=== PATIENT | female | born 1980 | race Caucasian/White ===

== ENCOUNTER → 2017-05-23 | Outpatient (CLI) | payer MEDICARE ==
[2017-05-23 13:23] LABS: HEMOGLOBIN 13.4 g/dL (12.2-16.2); LYMPH # 2.4 K/mm3 (0.7-4.5); LYMPH % 32.2 % (10-50.0)
[2017-05-23 16:06] LABS: BUN 8 mg/dL (7-18)
[2017-05-23 16:11] LABS: GFR (ESTIMATED) 81 ML/MIN (59-)
== END ==
LOC: LAB 13:08
PROVIDERS: Nurse Practitioner Family
DX: R53.83 Other fatigue (principal); E55.9 Vitamin D deficiency, unspecified; M54.5 Low back pain; R10.11 Right upper quadrant pain; F32.9 Major depressive disorder, single episode, unspecified; Z79.899 Other long term (current) drug therapy

== ENCOUNTER → 2017-05-30 | Outpatient (CLI) | payer MEDICARE, MEDICAID ==
--- NOTE | 2017-05-30 09:41 | RADIOLOGY REPORT PS360 ---
EXAM: LUMBAR SPINE 5 VIEWS HISTORY: BILAT LOW BACK PAIN WITH SCIATICA ORDERING PHYSICIAN: OSBALDO MA PATIENT AGE: 37 years COMPARISON: None FINDINGS: Normal alignment. No fracture or dislocation. No lytic or blastic change. No significant degenerative change. The disc spaces are preserved. IMPRESSION: Negative lumbar spine
--- NOTE | 2017-05-30 09:43 | RADIOLOGY REPORT PS360 ---
US RUQ-(ABD LTD)1ORGAN/QUAD/FU HISTORY: RUQ PAIN ORDERING PHYSICIAN: OSBALDO MA PATIENT AGE: 37 years COMPARISON: None FINDINGS: PANCREAS:Unremarkable. No obvious mass or abnormal fluid collection. No ductal dilatation LIVER:No focal liver lesions demonstrated. Homogeneous echogenicity. No intrahepatic biliary ductal dilatation evident RIGHT KIDNEY:Unremarkable. Normal size and echogenicity. No hydronephrosis GALLBLADDER: There is a small amount sludge versus concentrated bile within the gallbladder. No shadowing stones evident. IMPRESSION: 1. No gallstones apparent. 2. Small amount sludge versus concentrated bile within the gallbladder of questionable clinical significance in a fasting patient
== END ==
LOC: RAD 08:00
DX: R10.11 Right upper quadrant pain (principal); M54.5 Low back pain

== ENCOUNTER → 2017-06-29 | Outpatient (CLI) | payer MEDICARE, MEDICAID ==
--- NOTE | 2017-06-29 14:41 | RADIOLOGY REPORT PS360 ---
[facility] HEPATOBILIARY SCAN HISTORY: RUQ PAIN ORDERING PHYSICIAN: WAQAR LEE MD PATIENT AGE: 37 years COMPARISON: None DOSE: 8.63 mCi technetium Choletec Fatty meal was given with ensure. No pain reported with fatty meal. FINDINGS: Homogeneous activity is present within the hepatic parenchyma. Activity is present in the gallbladder by 10 minutes. Activity is present in the small bowel by 15 minutes. The gallbladder ejection fraction is calculated to be 58% The patient did not report pain or other symptoms during the fatty meal. IMPRESSION: Unremarkable hepatobiliary scan and gallbladder ejection fraction. No evidence of common or cystic duct obstruction with normal gallbladder ejection fraction
== END ==
LOC: RAD 10:13
DX: R10.11 Right upper quadrant pain (principal)
CPT/HCPCS: A9537